=== PATIENT | male | born 1985 | race Caucasian/White ===

== ENCOUNTER 2024-04-05 12:01 | Observation (INO) | payer OTHER ==
[~2024-04-05] VITALS: Ht 167.6 cm; Wt 80.3 kg
[2024-04-05 12:05] VITALS: BP 137/66; PULSE 56; RESP 10; TEMP 98.6; O2SAT 100
--- NOTE | 2024-04-05 12:12 | NUR ---
PT AMB TO BED 3
--- NOTE | 2024-04-05 12:30 | NUR ---
38YO M PRESENTS FOR EVALUATION OF CHEST PAIN X 1 WEEK, 02/09 PAIN. PAIN INCREASES AT INSPIRATION AND RADIATES TO LEFT UPPER BACK. PT STATES HE WAS SEEN BY PCP TODAY AND WAS TOLD TO SEE ED FOR FURTHER EVALUATION OF POSSIBLE PE. PT STATES HX OF PE BILAT LUNG X 10 YEARS AGO AND SYMPTOMS TODAY FEEL SIMILAR. DENIES FEVER, CHILLS, N, V, D, SOB, URINARY SYMPTOMS, FLU SYMPTOMS, INJURY. AOX4, AMBULATORY, VSS, HR 47 AT BEDSIDE, BILAT LUNG CLR, SKIN INTACT/DRY/WARM, NAD NOTED, SAFETY MAINTAINED, CALL LIGHT IN REACH, ON FRONT END APPLICATION DEVELOPER. HX: PE TO BILAT LUNG NKA
[2024-04-05 12:35] VITALS: O2SAT 100
--- NOTE | 2024-04-05 13:17 | NUR ---
IV ESTABLISHED L AC 20 G. LABS DRAWN
[2024-04-05 13:33] LABS: BASOPHILS % (AUTO) 0.8 % (0.0-2.0); EOSINOPHILS # (AUTO) 0.1 K/uL (0-0.4); EOSINOPHILS % (AUTO) 2.8 % (0.0-4.0); HEMATOCRIT 36.5 % (36-52); HEMOGLOBIN 12.2 g/dL (12.0-18.0); LYMPHOCYTES # (AUTO) 1.4 K/uL (2.0-11.5); LYMPHOCYTES % (AUTO) 30.6 % (20.5-51.1); MEAN CORPUSCULAR HEMOGLOBIN 30 pg (27-31); MEAN CORPUSCULAR HGB CONC 33 g/dL (33-37); MEAN CORPUSCULAR VOLUME 88.6 fL (80-94); MONOCYTES # (AUTO) 0.3 K/uL (0.8-1.0); MONOCYTES % (AUTO) 7.4 % (1.7-9.3); NEUTROPHILS # (AUTO) 2.7 K/uL (1.8-7.7); NEUTROPHILS % (AUTO) 58.4 % (42.2-75.2); PLATELET COUNT (AUTO) 162 K/uL (140-450); RED BLOOD CELL COUNT(AUTO) 4.13 MIL/uL (4.20-6.10); RED CELL DISTRIBUTION WIDTH 13.4 % (11.6-13.7); WHITE BLOOD COUNT (AUTO) 4.5 K/uL (4.8-10.8)
[2024-04-05 13:55] LABS: INR 1.11 (0.8-1.2); PARTIAL THROMBOPLASTIN TIME 26.6 secs (22-35.6); PROTHROMBIN TIME 11.6 secs (10.8-13.4)
[2024-04-05 13:58] LABS: ANION GAP 13.3 (8-16); CALCIUM 9.5 mg/dL (8.5-10.1); CARBON DIOXIDE 26.7 mmol/L (21-32); CREATININE 0.8 mg/dL (0.6-1.3)
[2024-04-05 14:01] LABS: D-DIMER < 100 ng/ml (0-400)
[2024-04-05] MEDS: NACL 0.9% 1,000 ML IV ONE (14:08)
[2024-04-05 14:11] LABS: ALANINE AMINOTRANSFERASE 21 U/L (12-78); ALBUMIN 4.1 g/dL (3.4-5.0); ALKALINE PHOSPHATASE 52 U/L (50-136); ASPARTATE AMINOTRANSFERASE 11 U/L (15-37); BILIRUBIN,DIRECT 0.1 mg/dL (0.0-0.3); TOTAL BILIRUBIN 0.6 mg/dL (0.0-1.0); TOTAL PROTEIN, SERUM 7.2 g/dL (6.4-8.2)
[2024-04-05 14:31] VITALS: O2SAT 97
--- NOTE | 2024-04-05 15:21 | NUR ---
HR 36, DR HDEZ AWARE, REPEAT EKG TO BE DONE
[2024-04-05] MEDS: ACETAMINOPHEN 325 MG TAB PO ONE (15:24)
--- NOTE | 2024-04-05 15:26 | NUR ---
RT AT BEDSIDE FOR EKG
[2024-04-05] MEDS ORDERED: TIZA6CAP9 PO (15:57)
[2024-04-05] MEDS ORDERED: RIVA2.5T PO (15:57)
--- NOTE | 2024-04-05 16:10 | NUR ---
NO CHANGE IN CONDITION, PT APPEARS TO BE SLEEPING IN COMFORTABLE POSITION, ON CONTRACT ASSOCIATE, NAD, SAFETY MAINTAINED, CALL LIGHT IN REACH.
[2024-04-05 16:14] VITALS: O2SAT 97
[2024-04-05] MEDS ORDERED: POTASSIUM CHLORIDE 10 MEQ TABER PO PRN (16:25)
[2024-04-05] MEDS ORDERED: ONDANSETRON 4 MG/2 ML VIAL IVP PRN (16:25)
[2024-04-05] MEDS ORDERED: MAGNESIUM OXIDE 400 MG TAB PO PRN (16:25)
[2024-04-05] MEDS ORDERED: ACETAMINOPHEN 325 MG TAB PO PRN (16:25)
--- NOTE | 2024-04-05 18:19 | NUR ---
CALLED REPORT TO DEMETRA BOWEN.
--- NOTE | 2024-04-05 18:34 | NUR ---
Patient will be admitted to care of LIBRADO LIU. Admited to TELE. Will go to [id number]. Belongings list completed. Report to DEMETRA BOWEN.
--- NOTE | 2024-04-05 18:34 | NUR ---
Chart checked and completed. The patient's care was reviewed and supervised by JOSEPH THAPA RN.
--- NOTE | 2024-04-05 18:40 | NUR ---
RECEIVED FROM ER VIA [facility]. A & O X4. SPEECH CLEAR. NO C/O PAIN. NO C/O SOB. SKIN WARM, DRY, AND INTACT. KEEP COMFORTABLE ON BED. EXPLAINED DIAGNOSIS, PLAN OF CARE, PAIN MANAGEMENT TEACHING, USE OF CALL LIGHT/BED/TV/BATHROOM. VERBALIZED UNDERSTANDING. CALL LIGHT WITHIN REACH. WILL ENDORSE TO TREE THINNER NURSE TO ADMIT PT.. INFORMED CHARGE NURSE ARMANDO FREDERICK.
[2024-04-05 20:00] VITALS: BP 117/60; PULSE 52; PULSE 56; RESP 18; TEMP 98; O2SAT 97
--- NOTE | 2024-04-05 20:00 | NUR ---
RECEIVED PATIENT FOR CARE AND BEGAN WITH BEDSIDE INTRODUCTIONS. PATIENT IS ALERT AND ABLE TO VERBALIZE NEEDS. ADVISED NOT TO GET OUT OF BED WITHOUT CALLING FOR NURSING ASSISTANCE. URINALS ARE AT BEDSIDE AND ALSO ADVISED TO CONTINUE TO USE FOR VOIDING FOR SHIFT. CARDIAC MONITORING REMAINS IN PLACE AND WILL CONTINUE TO MONITOR READINGS FOR SHIFT. PATIENT IS ABLE TO AMBULATE WITH MINIMAL ASSISTANCE AT THIS TIME. CALL LIGHT REMAINS IN PLACE, BED IN LOW POSITION, AND TWO UPPER BED SIDE RAILS RAISED ALL FOR ADDITIONAL SAFETY MEASURES. WILL CONTINUE TO MAKE NURSING ROUNDS FOR REMAINDER OF SHIFT TO ANTICIPATE PATIENTS NEEDS.
[2024-04-05 20:33] VITALS: PULSE 56
--- NOTE | 2024-04-05 21:23 | NUR ---
Patient's Plan of Care was discussed and reviewed with MINING ENGINEERING TECHNOLOGIST: DON MONTOYA
[2024-04-05] MEDS: TEMAZEPAM 15 MG CAP PO PRN (22:14)
--- NOTE | 2024-04-05 23:34 | NUR ---
MAKING NURSING ROUNDS PATIENT CONTINUES TO BE SLEEPING COMFORTABLY IN BED WITH CHEST RISING AND FALLING ADEQUATELY. CARDIAC MONITORING REMAINS IN PLACE AND WILL CONTINUE TO OBSERVE READINGS FOR REMAINDER OF SHIFT. DRESSING TO IV SITE REMAINS DRY AND INTACT. PATIENT HAS BEEN COMPLIANT WITH USING BEDSIDE URINALS FOR VOIDING. CALL LIGHT REMAINS WITHIN REACH, BED IN LOW POSITION, AND TWO UPPER BED SIDE RAILS RAISED ALL FOR ADDITIONAL SAFETY MEASURES. WILL CONTINUE TO MAKE NURSING ROUNDS FOR REMAINDER OF SHIFT TO ANTICIPATE PATIENTS NEEDS.
[2024-04-06] VITALS: BP 120/67; PULSE 46; PULSE 56; RESP 18; TEMP 97.6; O2SAT 98
--- NOTE | 2024-04-06 02:15 | NUR ---
MAKING NURSING ROUNDS SLEEPING MEDICATION WAS EFFECTIVE UPON REEVALUATION. PATIENT IS SLEEPING COMFORTABLY IN BED WITH CHEST RISING AND FALLING ADEQUATELY. CARDIAC MONITORING REMAINS IN PLACE AND WILL CONTINUE TO MONITOR FOR REMAINDER OF SHIFT. PATIENT HAS BEEN COMPLIANT WITH USING BEDSIDE URINALS FOR VOIDING. ADVISED NOT TO GET OUT OF BED WITHOUT CALLING FOR NURSING ASSISTANCE. CALL LIGHT REMAINS WITHIN REACH, BED IN LOW POSITION AND TWO UPPER BED SIDE RIALS RAISED ALL FOR ADDITIONAL SAFET MEASURES. WILL CONTINUE TO MAKE NURSING ROUNDS FOR REMAINDER OF SHIFT TO ANTICIPATE PATIENTS NEEDS.
[2024-04-06] MEDS: MORPHINE SULFATE 2 MG/ML SYR IVP PRN (03:56)
[2024-04-06 04:00] VITALS: BP 119/52; PULSE 48; PULSE 56; PULSE 60; RESP 18; TEMP 98.1; O2SAT 97
--- NOTE | 2024-04-06 05:10 | NUR ---
MAKING NURSING ROUNDS PATIENT CONTINUES TO BE SLEEPING COMFORTABLY IN BED WITH CHEST RISING AND FALLING ADEQUATELY. CARDIAC MONITORING REMAINS IN PLACE AND WILL CONTINUE TO MONITOR READINGS. PATIENT HAS BEEN COMPLIANT WITH USING URINALS FOR VOIDING AND ALL BEDSIDE CARE AND TREATMENTS. CALL LIGHT REMAINS WITHIN REACH , AND BED IN LOW POSITION AND TWO UPPER BED SIDE RIALS RAISED FOR ADDITIONAL SAFETY MEASURES. WILL CONTINUE TO MAKE NURSING ROUNDS UNTIL CARE IS FINALLY ENDORSED TO IN COMING NURSING STAFF.
[2024-04-06 05:42] LABS: BASOPHILS % (AUTO) 0.4 % (0.0-2.0); EOSINOPHILS # (AUTO) 0.3 K/uL (0-0.4); EOSINOPHILS % (AUTO) 3.8 % (0.0-4.0); HEMATOCRIT 38.4 % (36-52); HEMOGLOBIN 13.2 g/dL (12.0-18.0); LYMPHOCYTES # (AUTO) 1.3 K/uL (2.0-11.5); LYMPHOCYTES % (AUTO) 16.8 % (20.5-51.1); MEAN CORPUSCULAR HEMOGLOBIN 31 pg (27-31); MEAN CORPUSCULAR HGB CONC 34 g/dL (33-37); MEAN CORPUSCULAR VOLUME 88.8 fL (80-94); MONOCYTES # (AUTO) 0.5 K/uL (0.8-1.0); MONOCYTES % (AUTO) 6.2 % (1.7-9.3); NEUTROPHILS # (AUTO) 5.5 K/uL (1.8-7.7); NEUTROPHILS % (AUTO) 72.8 % (42.2-75.2); PLATELET COUNT (AUTO) 157 K/uL (140-450); RED BLOOD CELL COUNT(AUTO) 4.32 MIL/uL (4.20-6.10); RED CELL DISTRIBUTION WIDTH 13.8 % (11.6-13.7); WHITE BLOOD COUNT (AUTO) 7.5 K/uL (4.8-10.8)
[2024-04-06 05:53] LABS: CALCIUM 9.2 mg/dL (8.5-10.1); CARBON DIOXIDE 28.2 mmol/L (21-32); CREATININE 0.9 mg/dL (0.6-1.3); POTASSIUM 4.2 mmol/L (3.5-5.1)
[2024-04-06 06:08] LABS: MAGNESIUM 1.9 mg/dL (1.8-2.4); PHOSPHORUS 4.1 mg/dL (2.5-4.9)
--- NOTE | 2024-04-06 07:15 | NUR ---
ENDORSED STABLE PATIENT TO JESSI SOUZA FOR CONTINUING OF CARE.
--- NOTE | 2024-04-06 07:30 | NUR ---
RECEIVED REPORT FROM LINUX UNIX ENGINEER NURSE. PT IS ALERT AND ORIENTED (AOX4). IN ROOM AIR, NO SOB NOTED. PT IS ON REGULAR DIET. ABLE TO AMBULATE. PT HAS PERIPHERAL IV ON LEFT AC ON 20G. SKIN INTACT. BED IS LOCK AND LOW POSITION. CALL LIGHT WITHIN REACH.
[2024-04-06 08:00] VITALS: BP 122/60; PULSE 53; RESP 15; RESP 18; TEMP 97.6; O2SAT 98
[2024-04-06 12:00] VITALS: BP 128/62; PULSE 51; RESP 18; TEMP 97.8; O2SAT 98
--- NOTE | 2024-04-06 13:51 | NUR ---
DR. MARTIN MADE ROUND AND ASSESSED PT AT BEDSIDE. REVIEWED LAB DONE. ABLE TO DISCHARGE. NO NEW ORDER GIVEN.
[2024-04-06] MEDS ORDERED: IBUPROFEN 600 MG TAB PO PRN (13:55)
[2024-04-06 16:00] VITALS: BP 118/58; PULSE 58; RESP 20; TEMP 97.8; O2SAT 98
--- NOTE | 2024-04-06 16:06 | NUR ---
DR. LIU MADE ROUND AND ASSESSED PT AT BEDSIDE. REVIEWED LAB DONE. GIVEN DISCHARGE ORDER.
[2024-04-06 17:41] VITALS: BP 128/75; PULSE 58; RESP 20; TEMP 98
--- NOTE | 2024-04-06 18:15 | NUR ---
DISCHARGE PT. PT ABLE TO AMBULATE AND DISCHARGE TO HOME. NO SOB AND NO CHEST PAIN. SIGNED THE DISCHARGE PACKET.
[2024-04-06] MEDS ORDERED: MEDS-TO-BEDS MC SCH (21:00)
[2024-04-06] MEDS ORDERED: APIXABAN 2.5 MG TAB PO SCH (21:00)
== END 2024-04-06 18:20 | disposition home or self-care (01) ==
LOC: MED 12:01 → MTU 16:27 → MMU 18:41
PROVIDERS: ADMIT Hospitalist; ATTEND Hospitalist
DX: R07.89 Other chest pain (principal); R00.1 Bradycardia, unspecified; M94.0 Chondrocostal junction syndrome [Tietze]; M79.89 Other specified soft tissue disorders; Z86.711 Personal history of pulmonary embolism; Z87.891 Personal history of nicotine dependence; Z79.899 Other long term (current) drug therapy
CPT/HCPCS: 36415; 71045; 71275; 80048; 80076; 83735; 83880; 84100; 84484; 85025; 85379; 85610; 85730; 93005; 96374; 96376; 99285; C8929; G0378; J2270; Q9967